=== PATIENT | female | born 1955 | race Caucasian/White ===

== ENCOUNTER 2016-11-19 18:54 | Observation (INO) | payer OTHER ==
[2016-11-19] MEDS: NS 0.9% 1000 ML*IV.FLUID BOLUS ONE ×2 (19:35→19:36)
[2016-11-19 19:43] LABS: Hematocrit 37 % (35-47); Hemoglobin 12.4 g/dl (12.0-16.0); Mean Corpuscular HGB Conc 34 g/dl (31-36); Mean Corpuscular Hemoglobin 30 pg (27-31); Mean Corpuscular Volume 88 fL (80-97); Mean Platelet Volume 9 um3 (7.4-10.4); Red Blood Count 4.17 10^6/ul (4.0-5.4); Red Cell Distribution Width 14 % (10.5-15); White Blood Count 5.9 10^3/ul (3.5-10.8)
[2016-11-19 19:54] LABS: Albumin 4.2 g/dL (3.2-5.2); BUN/Creatinine Ratio 15.2 (8-20); Calcium 9.5 mg/dL (8.6-10.3); EGFR African American 68.5 (>60); EGFR Non-African American 53.3 (>60); Globulin 3.2 g/dL (2-4); Magnesium 2.4 mg/dL (1.9-2.7); Potassium 3.7 mmol/L (3.5-5.0); Total Bilirubin 0.4 mg/dL (0.2-1.0); Total Protein 7.4 g/dL (6.4-8.9)
--- NOTE | 2016-11-19 19:55 | RAD ---
INDICATION: Dizziness COMPARISON: None TECHNIQUE: An AP portable view obtained at 1943 hours is submitted. FINDINGS: Bones/Soft Tissues: There are no acute bony findings. Cardiomediastinal: The cardiomediastinal silhouette is normal. Lungs: There are no infiltrates. Pleura: There are no pleural effusions. Other: None IMPRESSION: NO ACTIVE DISEASE.
[2016-11-19 20:06] LABS: Urine Bacteria Absent (Absent); Urine Bilirubin Negative (Negative); Urine Glucose Negative (Negative); Urine Nitrite Positive (Negative)
[2016-11-19 20:26] LABS: TSH (Thyroid Stimulating Horm) 1.5 mcIU/mL (0.34-5.60)
[2016-11-19] MEDS ORDERED: Meclizine TAB* 12.5 MG PO ONE (21:33)
[2016-11-19 21:43] LABS: Free T3 3.8 pg/mL (2.5-3.9)
[2016-11-19 21:48] LABS: Free T4 1.29 ng/dL (0.61-1.12)
--- NOTE | 2016-11-20 00:31 | ED ---
Neptali Barlow Angela, scribed for Yesi Hanna MD on 11/19/16 at 1914 . Dizziness - HPI Summary HPI Summary: This pt is a 61 y/o female presenting to [facility] c/o sudden onset of light- headedness since today. Pt notes she has been getting over a cold. Her cold symptoms include coughing and sneezing. Additionally c/o diarrhea x1 week and urinary frequency for over 1 week but denies dysuria. She took 2 cranberry pills today and after lunch she felt nauseous and light-headedness. Pt denies SOB, chest pain, palpitations, slurred speech. PMHx: lupus. Pt works in [employer]. - History Of Current Complaint Stated Complaint: DIZZINESS/NAUSEA Time Seen by Provider: 11/19/16 18:59 Hx Obtained From: Patient Onset/Duration: Still Present Associated Signs And Symptoms: Positive: Nausea, Other: - light-headedness. Negative: Chest Pain, SOB, Palpitations - Allergies/Home Medications Allergies/Adverse Reactions: Allergies Allergy/AdvReac Type Severity Reaction Status Date / Time No Known Allergies Allergy Verified 11/19/16 20:22 PMH/Surg Hx/FS Hx/Imm Hx Endocrine/Hematology History: Denies: Hx Diabetes Cardiovascular History: Denies: Hx Hypertension - Surgical History Surgery Procedure, Year, and Place: Foot surgery in the end of July. - Family History Known Family History: Positive: Diabetes - mother, type 2 - Social History Lives: Alone Alcohol Use: None Hx Substance Use: No Substance Use Type: Reports: None Hx Tobacco Use: No Smoking Status (MU): Never Smoked Tobacco Review of Systems Negative: Fever, Chills Eyes: Negative Positive: Nasal Discharge Negative: Palpitations, Chest Pain Positive: Cough. Negative: Shortness Of Breath Positive: Diarrhea - 1 week, Nausea. Negative: Abdominal Pain Positive: frequency. Negative: burning, dysuria Musculoskeletal: Negative Skin: Negative Neurological: Other - light-headeness Negative: Slurred Speech All Other Systems Reviewed And Are Negative: Yes Physical Exam Triage Information Reviewed: Yes Vital Signs On Initial Exam: Initial Vitals Temp Pulse Resp BP Pulse Ox 98.1 F 63 14 131/78 98 11/19/16 19:09 11/19/16 19:09 11/19/16 19:09 11/19/16 19:09 11/19/16 19:09 Vital Signs Reviewed: Yes Appearance: Positive: Well-Appearing, No Pain Distress Skin: Positive: Warm, Skin Color Reflects Adequate Perfusion, Dry Eyes: Positive: EOMI, HARISH ENT: Positive: Pharynx normal, TMs normal Neck: Positive: Supple, Nontender Respiratory/Lung Sounds: Positive: Clear to Auscultation, Breath Sounds Present. Negative: Rales, Rhonchi, Wheezes Cardiovascular: Positive: RRR. Negative: Murmur, Rub Abdomen Description: Positive: Nontender, Soft. Negative: Distended, Guarding, Other: - rebound Bowel Sounds: Positive: Present Musculoskeletal: Positive: Strength/ROM Intact. Negative: Edema Left, Edema Right Psychiatric: Positive: Affect/Mood Appropriate Diagnostics - Vital Signs Vital Signs Temp Pulse Resp BP Pulse Ox 11/20/16 00:01 67 118/76 95 11/20/16 00:00 64 95 11/19/16 23:30 63 129/77 94 11/19/16 22:00 16 122/62 11/19/16 21:30 65 15 139/62 98 11/19/16 21:12 69 98 11/19/16 21:09 160/54 11/19/16 20:57 68 14 97 11/19/16 20:53 139/80 11/19/16 20:52 76 138/80 11/19/16 20:51 68 13 121/74 97 11/19/16 20:30 71 21 108/84 95 11/19/16 20:00 61 12 141/78 97 11/19/16 19:30 66 17 147/74 98 11/19/16 19:09 98.1 F 62 10 131/78 99 11/19/16 19:08 131/78 - Laboratory Lab Results: Lab Results 11/19/16 11/19/16 11/19/16 Range/Units 19:20 19:20 19:20 WBC 5.9 (3.5-10.8) 10^3/ul RBC 4.17 (4.0-5.4) 10^6/ul Hgb 12.4 (12.0-16.0) g/dl Hct 37 (35-47) % MCV 88 (80-97) fL MCH 30 (27-31) pg MCHC 34 (31-36) g/dl RDW 14 (10.5-15) % Plt Count 179 (150-450) 10^3/ul MPV 9 (7.4-10.4) um3 Neut % (Auto) 54.5 (38-83) % Lymph % (Auto) 34.0 (25-47) % [place] % (Auto) 7.5 (1-9) % Eos % (Auto) 2.8 (0-6) % Baso % (Auto) 1.2 (0-2) % Absolute Neuts (auto) 3.2 (1.5-7.7) 10^3/ul Absolute Lymphs (auto) 2.0 (1.0-4.8) 10^3/ul Absolute Monos (auto) 0.4 (0-0.8) 10^3/ul Absolute Eos (auto) 0.2 (0-0.6) 10^3/ul Absolute Basos (auto) 0.1 (0-0.2) 10^3/ul Absolute Nucleated RBC 0 10^3/ul Nucleated RBC % 0 Sodium 134 (133-145) mmol/L Potassium 3.7 (3.5-5.0) mmol/L Chloride 101 (101-111) mmol/L Carbon Dioxide 26 (22-32) mmol/L Anion Gap 7 (2-11) mmol/L BUN 16 (6-24) mg/dL Creatinine 1.05 H (0.51-0.95) mg/dL Est GFR ( Amer) 68.5 (>60) Est GFR (Non-Af Amer) 53.3 (>60) BUN/Creatinine Ratio 15.2 (8-20) Glucose 87 (70-100) mg/dL Lactic Acid 0.7 (0.5-2.0) mmol/L Calcium 9.5 (8.6-10.3) mg/dL Magnesium 2.4 (1.9-2.7) mg/dL Total Bilirubin 0.40 (0.2-1.0) mg/dL AST 18 (13-39) U/L ALT 9 (7-52) U/L Alkaline Phosphatase 65 (34-104) U/L Troponin I 0.00 (<0.04) ng/mL Total Protein 7.4 (6.4-8.9) g/dL Albumin 4.2 (3.2-5.2) g/dL Globulin 3.2 (2-4) g/dL Albumin/Globulin Ratio 1.3 (1-3) TSH 1.50 (0.34-5.60) mcIU/mL Free T4 1.29 H (0.61-1.12) ng/dL Free T3 3.80 (2.5-3.9) pg/mL Urine Color Urine Appearance Urine pH (5-9) Ur Specific [place] (1.010-1.030) Urine Protein (Negative) Urine Ketones (Negative) Urine Blood (Negative) Urine Nitrate (Negative) Urine Bilirubin (Negative) Urine Urobilinogen (Negative) Ur Leukocyte Esterase (Negative) Urine WBC (Auto) (Absent) Urine RBC (Auto) (Absent) Ur Squamous Epith Cells (Absent) Urine Bacteria (Absent) Urine Glucose (Negative) 11/19/16 Range/Units 19:35 WBC (3.5-10.8) 10^3/ul RBC (4.0-5.4) 10^6/ul Hgb (12.0-16.0) g/dl Hct (35-47) % MCV (80-97) fL MCH (27-31) pg MCHC (31-36) g/dl RDW (10.5-15) % Plt Count (150-450) 10^3/ul MPV (7.4-10.4) um3 Neut % (Auto) (38-83) % Lymph % (Auto) (25-47) % [place] % (Auto) (1-9) % Eos % (Auto) (0-6) % Baso % (Auto) (0-2) % Absolute Neuts (auto) (1.5-7.7) 10^3/ul Absolute Lymphs (auto) (1.0-4.8) 10^3/ul Absolute Monos (auto) (0-0.8) 10^3/ul Absolute Eos (auto) (0-0.6) 10^3/ul Absolute Basos (auto) (0-0.2) 10^3/ul Absolute Nucleated RBC 10^3/ul Nucleated RBC % Sodium (133-145) mmol/L Potassium (3.5-5.0) mmol/L Chloride (101-111) mmol/L Carbon Dioxide (22-32) mmol/L Anion Gap (2-11) mmol/L BUN (6-24) mg/dL Creatinine (0.51-0.95) mg/dL Est GFR ( Amer) (>60) Est GFR (Non-Af Amer) (>60) BUN/Creatinine Ratio (8-20) Glucose (70-100) mg/dL Lactic Acid (0.5-2.0) mmol/L Calcium (8.6-10.3) mg/dL Magnesium (1.9-2.7) mg/dL Total Bilirubin (0.2-1.0) mg/dL AST (13-39) U/L ALT (7-52) U/L Alkaline Phosphatase (34-104) U/L Troponin I (<0.04) ng/mL Total Protein (6.4-8.9) g/dL Albumin (3.2-5.2) g/dL Globulin (2-4) g/dL Albumin/Globulin Ratio (1-3) TSH (0.34-5.60) mcIU/mL Free T4 (0.61-1.12) ng/dL Free T3 (2.5-3.9) pg/mL Urine Color [place] Urine Appearance Clear Urine pH 6.0 (5-9) Ur Specific [place] 1.011 (1.010-1.030) Urine Protein Negative (Negative) Urine Ketones Negative (Negative) Urine Blood 1+ H (Negative) Urine Nitrate Positive H (Negative) Urine Bilirubin Negative (Negative) Urine Urobilinogen Negative (Negative) Ur Leukocyte Esterase 1+ H (Negative) Urine WBC (Auto) Trace(0-5/hpf) (Absent) Urine RBC (Auto) 1+(3-5/hpf) H (Absent) Ur Squamous Epith Cells Present H (Absent) Urine Bacteria Absent (Absent) Urine Glucose Negative (Negative) Result Diagrams: 11/19/16 19:20 11/19/16 19:20 Lab Statement: Any lab studies that have been ordered have been reviewed, and results considered in the medical decision making process. - Radiology Chest XR Xray Interpretation: No Acute Changes - IMPRESSION: No active disease. ED physician has reviewed this radiology report and agrees. 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 Pt was evaluated for near syncope received 2 Liters of fluid and orthostatics were normal and pt was about to be discharged and she became dizzy again and gently lowered herself to the ground. She for the most part relates her symptoms as lightheaded but there seems to be a vertiginous quality she was given antivert and felt a bit better ambulating but again felt too dizzy to go home. The case was discussed with Dr. Lynn who will admit the patient. - Diagnoses Provider Diagnoses: Near syncope Discharge - Discharge Plan Condition: Stable Disposition: HOME Patient Education Materials: Near Syncope (ED) Referrals: [facility] [Outside] Non Staff,Doctor [Primary Care Provider] - The documentation as recorded by the Neptali gaines Angela accurately reflects the service I personally performed and the decisions made by me, Yesi Hanna MD.
[2016-11-20] MEDS ORDERED: Acetaminophen TAB* 325 MG PO PRN (03:14)
[2016-11-20] MEDS ORDERED: Ondansetron INJ* 2 MG/ML VIAL IV PRN (03:14)
[2016-11-20] MEDS ORDERED: NS 0.9% 1000 ML* 1,000 ML IV SCH (03:15)
--- NOTE | 2016-11-20 04:13 | HP ---
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 The episode lasted <3minutes and occurred 2 more times. She decided to go home around 1700, but while walking to her car became so dizzy she "half fell half sat" onto the ground and a student came along and drove her to the [facility] who called EMS and referred her to [facility]. She has some mild generalized 'achiness' along with frequency & urgency of urine, but denies F/C, cough, congestion, chest pain, focal W/N/T, slurred speech, change in vision, headache, SOB, palpitations, or other issues. In ED she has been given 2L NS and 50mg meclizine and she feels better while lying still, but unsteady when standing. 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 Father passed at 51 2nd [place]. Siblings: CVA, CAD, HTN ROS: as above, otherwise reviewed and all were negative vitals: Vital Signs Temp 36.7 C 11/19/16 19:09 Pulse 67 11/20/16 00:01 Resp 16 11/19/16 22:00 BP 118/76 11/20/16 00:01 Pulse Ox 95 11/20/16 00:01 Intake & Output 11/19/16 11/19/16 11/20/16 11:59 23:59 11:59 Intake Total 1999 Balance 1999 Weight 65.771 kg Intake: IV Fluids 1999 Constitutional: NAD, normally developed, overweight white female HEENM: atraumatic; sclera/conjunctiva: ; non-icteric/clear; fundi: no papilledema; hearing: clinically intact; oropharynx: clear, mucosa moist Neck: soft tissue: non-tender; thyroid: normal Pulmonary: clear to auscultation bilaterally, good aeration, no accessory muscle use CV: RR/RR, normal S1S2, no carotid bruit, no jugular venous distention, 2+ B DP/ PT, no edema Abdominal: soft, non-distended, non-tender, no rebound/guarding/rigidity, normoactive bowel sounds, no hepatosplenomegaly or masses, no costovertebral angle tenderness Musculoskeletal: general: grossly intact, no palpable tenderness, negative Homans Integumental: normal appearance and texture of exposed skin Neurological cranial nerves II: visual longo intact to isolated confrontation III/IV/: symmetric light reflex, EOMI/PERRLA, intact convergence, accommodation V: intact facial sensation & mastication VII: intact facial symmetry & eye clench VIII: hearing clinically intact IX/X: symmetric palatal motion, intact gag reflex, no dysarthria XI: intact shoulder shrug B XII: midline tongue protrusion, normal voice articulation motor: R handed LUE: 4+/5 proximally, distally, & back end web developer strength RUE: 4+/5 proximally, distally, & back end web developer strength LLE: 4+/5 proximally & distally RLE: 4+/5 proximally & distally coordination finger/nose: intact/symmetric heal/siu: intact/symmetric sensory crude touch: intact globally pinprick: intact globally vibration: intact globally proprioception: intact BLE DTRs biceps: 2+ B triceps: 2+ B brachioradialis: 2+ B patellar: 1+ B Achilles: 1+ B Babinski: equivocal B Psychiatric orientation: AA&O to PPS affect: calm mood: cooperative eye contact: good content: reliable responses: timely insight: good Testing: Lab Results 11/19/16 11/19/16 11/19/16 Range/Units 19:20 19:20 19:20 WBC 5.9 (3.5-10.8) 10^3/ul RBC 4.17 (4.0-5.4) 10^6/ul Hgb 12.4 (12.0-16.0) g/dl Hct 37 (35-47) % MCV 88 (80-97) fL MCH 30 (27-31) pg MCHC 34 (31-36) g/dl RDW 14 (10.5-15) % Plt Count 179 (150-450) 10^3/ul MPV 9 (7.4-10.4) um3 Neut % (Auto) 54.5 (38-83) % Lymph % (Auto) 34.0 (25-47) % [place] % (Auto) 7.5 (1-9) % Eos % (Auto) 2.8 (0-6) % Baso % (Auto) 1.2 (0-2) % Absolute Neuts (auto) 3.2 (1.5-7.7) 10^3/ul Absolute Lymphs (auto) 2.0 (1.0-4.8) 10^3/ul Absolute Monos (auto) 0.4 (0-0.8) 10^3/ul Absolute Eos (auto) 0.2 (0-0.6) 10^3/ul Absolute Basos (auto) 0.1 (0-0.2) 10^3/ul Absolute Nucleated RBC 0 10^3/ul Nucleated RBC % 0 Sodium 134 (133-145) mmol/L Potassium 3.7 (3.5-5.0) mmol/L Chloride 101 (101-111) mmol/L Carbon Dioxide 26 (22-32) mmol/L Anion Gap 7 (2-11) mmol/L BUN 16 (6-24) mg/dL Creatinine 1.05 H (0.51-0.95) mg/dL Est GFR ( Amer) 68.5 (>60) Est GFR (Non-Af Amer) 53.3 (>60) BUN/Creatinine Ratio 15.2 (8-20) Glucose 87 (70-100) mg/dL Lactic Acid 0.7 (0.5-2.0) mmol/L Calcium 9.5 (8.6-10.3) mg/dL Magnesium 2.4 (1.9-2.7) mg/dL Total Bilirubin 0.40 (0.2-1.0) mg/dL AST 18 (13-39) U/L ALT 9 (7-52) U/L Alkaline Phosphatase 65 (34-104) U/L Troponin I 0.00 (<0.04) ng/mL Total Protein 7.4 (6.4-8.9) g/dL Albumin 4.2 (3.2-5.2) g/dL Globulin 3.2 (2-4) g/dL Albumin/Globulin Ratio 1.3 (1-3) TSH 1.50 (0.34-5.60) mcIU/mL Free T4 1.29 H (0.61-1.12) ng/dL Free T3 3.80 (2.5-3.9) pg/mL Urine Color Urine Appearance Urine pH (5-9) Ur Specific [place] (1.010-1.030) Urine Protein (Negative) Urine Ketones (Negative) Urine Blood (Negative) Urine Nitrate (Negative) Urine Bilirubin (Negative) Urine Urobilinogen (Negative) Ur Leukocyte Esterase (Negative) Urine WBC (Auto) (Absent) Urine RBC (Auto) (Absent) Ur Squamous Epith Cells (Absent) Urine Bacteria (Absent) Urine Glucose (Negative) 11/19/16 Range/Units 19:35 WBC (3.5-10.8) 10^3/ul RBC (4.0-5.4) 10^6/ul Hgb (12.0-16.0) g/dl Hct (35-47) % MCV (80-97) fL MCH (27-31) pg MCHC (31-36) g/dl RDW (10.5-15) % Plt Count (150-450) 10^3/ul MPV (7.4-10.4) um3 Neut % (Auto) (38-83) % Lymph % (Auto) (25-47) % [place] % (Auto) (1-9) % Eos % (Auto) (0-6) % Baso % (Auto) (0-2) % Absolute Neuts (auto) (1.5-7.7) 10^3/ul Absolute Lymphs (auto) (1.0-4.8) 10^3/ul Absolute Monos (auto) (0-0.8) 10^3/ul Absolute Eos (auto) (0-0.6) 10^3/ul Absolute Basos (auto) (0-0.2) 10^3/ul Absolute Nucleated RBC 10^3/ul Nucleated RBC % Sodium (133-145) mmol/L Potassium (3.5-5.0) mmol/L Chloride (101-111) mmol/L Carbon Dioxide (22-32) mmol/L Anion Gap (2-11) mmol/L BUN (6-24) mg/dL Creatinine (0.51-0.95) mg/dL Est GFR ( Amer) (>60) Est GFR (Non-Af Amer) (>60) BUN/Creatinine Ratio (8-20) Glucose (70-100) mg/dL Lactic Acid (0.5-2.0) mmol/L Calcium (8.6-10.3) mg/dL Magnesium (1.9-2.7) mg/dL Total Bilirubin (0.2-1.0) mg/dL AST (13-39) U/L ALT (7-52) U/L Alkaline Phosphatase (34-104) U/L Troponin I (<0.04) ng/mL Total Protein (6.4-8.9) g/dL Albumin (3.2-5.2) g/dL Globulin (2-4) g/dL Albumin/Globulin Ratio (1-3) TSH (0.34-5.60) mcIU/mL Free T4 (0.61-1.12) ng/dL Free T3 (2.5-3.9) pg/mL Urine Color [place] Urine Appearance Clear Urine pH 6.0 (5-9) Ur Specific [place] 1.011 (1.010-1.030) Urine Protein Negative (Negative) Urine Ketones Negative (Negative) Urine Blood 1+ H (Negative) Urine Nitrate Positive H (Negative) Urine Bilirubin Negative (Negative) Urine Urobilinogen Negative (Negative) Ur Leukocyte Esterase 1+ H (Negative) Urine WBC (Auto) Trace(0-5/hpf) (Absent) Urine RBC (Auto) 1+(3-5/hpf) H (Absent) Ur Squamous Epith Cells Present H (Absent) Urine Bacteria Absent (Absent) Urine Glucose Negative (Negative) ECG, personally reviewed: sinus RBBB rate 60, no ischemia CXR, personally reviewed: IMPRESSION: NO ACTIVE DISEASE. Impression: 61F presenting with atypical vertigo, doubt posterior circulation CVA DIAGNOSIS & PLAN Primary atypical vertigo : observation : PO meclizine : neurochecks : IVFs : if dizziness persists in AM, consider MRI brain & neurology consult : supplemental oxygen : supportive care UTI : urine CX : IV ceftriaxone Secondary hypothyroidism : continue levothyroxine discoid lupus : continue hydroxychloroquine Admission Rational: observation for atypical vertigo DVTp: BELLO Code Status: full HCP:
[2016-11-20] MEDS ORDERED: cefTRIAXone VIAL(*) 1,000 MG in NS 0.9% 50 ML* 50 ML IVPB SCH (04:30)
[2016-11-20] MEDS ORDERED: Levothyroxine TAB* 75 MCG TAB PO SCH (06:00)
[2016-11-20] MEDS ORDERED: Meclizine TAB* 12.5 MG PO SCH (06:00)
[2016-11-20] MEDS ORDERED: Omeprazole CAP* 20 MG PO SCH (07:30)
[2016-11-20] MEDS ORDERED: Hydroxychloroquine TAB* 200 MG PO SCH (08:00)
[2016-11-20 08:36] VITALS: BP 111/60
--- NOTE | 2016-11-20 10:51 | DS ---
DATE OF ADMISSION: 11/20/2016. DATE OF DISCHARGE: 11/20/2016. PRIMARY CARE PROVIDER: Out of the area. DISCHARGING PROVIDER: ROLAND Gama. SUPERVISING PHYSICIAN: Dr. Maury Molina * (dictated by ROLAND Gama). PRIMARY DISCHARGE DIAGNOSES: 1. Vertigo. 2. Possible urinary tract infection with culture pending at the time of discharge. SECONDARY DISCHARGE DIAGNOSES: 1. Hypothyroidism with a normal TSH. 2. Lupus. 3. Hyperlipidemia. 4. Seasonal allergies. DISCHARGE MEDICATIONS: 1. Fluticasone nasal spray 50 mcg per actuation with instructions to use two sprays in both nostrils once daily. 2. Plaquenil 200 mg p.o. twice daily. 3. Levothyroxine 75 mcg p.o. daily. 4. Loratadine 10 mg p.o. daily. 5. Meclizine 25 mg p.o. q.8 hours as needed for dizziness. 6. Macrobid 100 mg p.o. twice daily times 5 days. HOSPITAL IMAGIN. Chest x-ray shows no acute process. 2. EKG demonstrates a normal sinus rhythm. HOSPITAL COURSE: This is a 61-year-old female with a history of hypothyroidism , Lupus and hyperlipidemia who presented to the emergency department with severe dizziness and near syncope. The patient's symptoms has started suddenly this afternoon and she had at least three discrete episodes, the first of which started while she was just seated at her desk. Reflecting on symptoms over the last couple of weeks, she now recalls frequent sneezing and was complaining of some feelings of sinus congestion this morning. She otherwise denies any recent acute illness, no fever, and no weakness, numbness, tingling, other balance difficulties prior to today. When she was describing the dizziness, she had a difficult time providing a description, but believed it was more of a lightheaded feeling than a true spinning sensation. In the emergency department, initial labs were largely unremarkable with a normal CBC. D-dimer was negative. Comprehensive metabolic panel unremarkable. TSH was within normal limits at 1.5. Lactic acid normal at 0.7 and a negative troponin. Initial EKG was unremarkable. Urine analysis, however, demonstrated a possible UTI with +1 blood, positive nitrates, 1+ leuk esterase. The patient denied any associated urinary symptoms. The patient was subsequently hydrated with IV fluids and started on Meclizine. She was admitted for a period of observation. The patient reports that her dizziness has resolved the morning of discharge. She is able to ambulate independently without any feelings of lightheadedness. DISPOSITION AND FOLLOW-UP PLAN: The patient is being discharged to home. Symptoms seem to be consistent with vertigo and recent symptoms of environmental allergies. She prescribed daily Loratadine and Flonase with instructions to use Meclizine on an as needed basis if her dizziness returns. She is also provided with a five day prescription of Macrobid for suspected urinary tract infection with culture pending at the time of discharge. ROLAND GAMA [id number]/[facility] #: [id number]
== END 2016-11-20 12:28 | disposition home or self-care (01) ==
LOC: ED 18:54 → MEDTELE 11-20 03:13
PROVIDERS: ADMIT Hospitalist; ATTEND Internal Medicine
DX: R42 Dizziness and giddiness (principal); N39.0 Urinary tract infection, site not specified; E03.9 Hypothyroidism, unspecified; L93.0 Discoid lupus erythematosus; E78.5 Hyperlipidemia, unspecified; J30.2 Other seasonal allergic rhinitis; F17.200 Nicotine dependence, unspecified, uncomplicated
CPT/HCPCS: 36415; 71010; 80053; 81003; 81015; 83605; 83735; 84439; 84443; 84481; 84484; 85025; 85379; 87086; 93005; 96374; 99283; A9270-GY; G0378; J0696